=== PATIENT | female | born 1990 | race Caucasian/White ===

== ENCOUNTER 2019-11-15 21:21 | Inpatient (IN) | payer OTHER ==
[~2019-11-15] VITALS: Ht 167.6 cm; Wt 70.9 kg
[2019-11-15 21:49] VITALS: BP 111/72
[2019-11-15] MEDS ORDERED: OXYTOCIN 30 UNITS IN 0.9% NaCl 500ML IV BAG (J2590) As Ordered ONE (23:39)
[2019-11-15 23:55] VITALS: BP 123/75
--- NOTE | 2019-11-15 23:55 | HPEPDOC ---
Obstetrical History & Physical General Date of Admission History of Present Illness patient is a 29 yo @ 38wks gestation by lmp CHAYITO 22JUL presents with regular painful contractions. patient progressed to have a spontaneous delivery while being monitored. Chief Complaint: Contractions, term Information Provided By: Patient Age: 29 : 2 Term: 2 Pre-term: 0 Abortions: 0 Livin Care Care: Good Care Dating Final EDC: Nov 28, 2019 Final EDC for Daily Update: Nov 28, 2019 Final EDC by: LMP, 1st trimester (US) Past Medical History Past Obstetrical History : Past Obstetrical History: Multigravida ( x 2) Past Medical History Medical History tachycardia, depression, Social History Marital Status: Family situation: Spouse/partner home * Smoker: non-smoker Alcohol: Denies Drugs: denies Imunizations Tdap status: current Allergies Coded Allergies: No Known Allergies (Unverified , 11/15/19) Physical Examination Physical Examination GENERAL: Alert and oriented times three. BREAST: . ABDOMEN: , Uterus at u-2 HEART RATE: Regular rate and rhythm. LUNGS: Clear to auscultation (CTA). EXTREMITIES: No edema. No clonus. Deep tendon reflexes (DTRs) + . vaginal/perineum: no laceration Vital Signs/I&O Vital Signs Date Time Temp Pulse Resp B/P (MAP) Pulse Ox O2 Delivery O2 Flow Rate FiO2 11/15/19 21:49 98.4 93 16 111/72 (85) Pertinent Laboratoy Data Blood Type: O+ RBC Antibody Screen: Negative HIV: Negative Hepatitis B: Negative Rapid Plasma Reagin: Nonreactive Rubella: Immune Chlamydia/Gonorrhea: Negative Group B Streptococcus: Negative Anatomy Ultrasound Placenta Location: Anterior Normal Anatomy: Yes Placenta Previa: No Vaginal Examination Effacement: 80% Cervical Consistency: Soft Assessment Heart Rate (FHR): 145 Decelerations: None Tocometer Frequency: every 1-5 min. Assessment/Plan Assessment patient is a 29 yo s/p precipitous delivery @38+1 wks. admit for care. see delivery notes for details. Plan Admit and orient. Balloon Tester and consent. Diet: regular Group B Streptococcus (GBS) negative Labs and intravenous (IV) per unit protocol. routine care. ANAYELI AKERS DO Nov 15, 2019 23:34
[2019-11-16] VITALS (8 sets, daily range): BP systolic 101–119; BP diastolic 55–78
--- NOTE | 2019-11-16 00:05 | DNPDOC ---
[facility] Delivery Note Delivery Note DATE OF DELIVERY: 11/15/19 PREDELIVERY DIAGNOSIS: 38+1/7 weeks' gestation and labor. POST DELIVERY DIAGNOSIS: Delivered. PROCEDURE: Spontaneous vaginal delivery SCREW DRIVER OPERATOR: Dr. Anayeli Newton DO ANESTHESIA: none ESTIMATED BLOOD LOSS: 250 mL. FINDINGS: 6 pound 7 ounce male infant, Score 8/9, nuchal cord times x1, bandalero cord x 1. DELIVERY SUMMARY: Come to assess patient when she SROM. Baby delivered with following contraction. nuchal cord and bandalero cord noted tight. anterior and posterior shoulder delivered, body followed with ease, cord reduced. baby placed on maternal abdomen. Pitocin 10units given IM x 1. Cord allowed to stop pulsating. cord clamped x 2 and cut by mom. cord blood collected per routine. placenta delivered spontaneously, intact appearing. Fundus massaged firm. Inspection revealed no laceration. baby and mother bonding when I left the room. ANAYELI NEWTON DO Nov 16, 2019 00:05
[2019-11-16] MEDS ORDERED: IBUPROFEN 800 MG TAB PO PRN (00:15)
[2019-11-16] MEDS ORDERED: MEASLES,MUMPS,RUBELLA VACCINE INJ (MMR-II) (90707) SC SCH (00:15)
[2019-11-16] MEDS ORDERED: OXYTOCIN INJ 10 UNITS/ML VIAL (J2590) IM ONE (00:15)
[2019-11-16] MEDS ORDERED: RHOGAM 300 MCG (1500 IU) INJ (J2790) IM SCH (00:15)
[2019-11-16] MEDS ORDERED: ACETAMINOPHEN TAB 650MG DOSE (2X325MG) PO PRN (00:15)
[2019-11-16] MEDS ORDERED: DIBUCAINE 1% OINTMENT 30GM TOP PRN (00:15)
[2019-11-16 01:09] LABS: HEMATOCRIT 40.3 % (36.0-47.0); HEMOGLOBIN 13.7 g/dl (12.0-15.5); MEAN CORPUSCULAR HEMOGLOBIN 30.6 pg (27.0-33.0); MEAN CORPUSCULAR VOLUME 90.2 fl (80.0-96.0); PLATELET COUNT, AUTOMATED 253 10^3/uL (150-450); RED BLOOD COUNT 4.47 10^6/uL (4.00-5.40)
[2019-11-16] MEDS: PRENATAL VITAMINS CHEWABLE TABLET PO SCH (08:12)
[2019-11-16] MEDS ORDERED: BUSP10TA PO (08:57)
[2019-11-16] MEDS ORDERED: WELLTAB40 PO (08:57)
[2019-11-16] MEDS ORDERED: METO1TAB87 PO (08:57)
[2019-11-16] MEDS ORDERED: BUPR150T3 PO (09:21)
[2019-11-16] MEDS ORDERED: BUPR15TASR PO (09:50)
[2019-11-16] MEDS ORDERED: METO1TAB32 PO (09:50)
[2019-11-16] MEDS: busPIRone 10 MG TAB PO SCH ×2 (11:44→21:34)
[2019-11-16] MEDS: METOPROLOL SUCC *XL* 12.5MG PER 1/2 TAB (TopROL *XL*) PO SCH (11:44)
[2019-11-16] MEDS: buPROPion **SR TABLET** (ZYBAN) 150MG PO SCH ×2 (11:44→21:00)
[2019-11-17 06:00] VITALS: BP 99/51
--- NOTE | 2019-11-17 08:32 | OBDS ---
[facility] Obstetrical Discharge Sum. Obstetrical Discharge Summary Date: Nov 17, 2019 : 2 Term: 2 Livin VDRL: Non-Reactive Rh: Positive Rubella: Immune Labor Active labor Delivery Infant Sex: Male Weight: pounds (6lb7oz) A/P, Post Course List any complications Admission diagnosis: Active Labor, Term Discharge diagnosis: Active Labor, Term Condition at Discharge: Stable Discharge Instructions: Home Activity: Ad hugo with pelvic rest Diet: Regular Medications: As received during 36wk visit Follow-up: 6wks Other: None HOSPITAL COURSE: Patient was admitted for active labor . She had an uncomplicated precipitous . Her course was uncomplicated with normal lochia, pain and spontaneous voiding. She ambulated and ate without difficulty. Liliya Tavares MD Nov 16, 2019 15:26
--- NOTE | 2019-11-17 08:32 | IPNPDOC ---
Progress Note Date of Service: Nov 17, 2019 Day#: 1 Progress Note SUBJECT: Patient is a 29-year-old 2 now Para 2 status post uncomplicated spontaneous vaginal delivery without post vaginal laceration, doing well day # 1. She has been ambulating, voiding spontaneously without issue and tolerating regular diet. Breast feeding without issue. Reports lochia is less than a period. Patient is ambulating well. Reports some cramping with . Denies any pain. OBJECTIVE: VITAL SIGNS: Within normal limits, afebrile. GENERAL: No acute distress HEENT: MMM BREAST: Nontender, no erythema CARDIOVASCULAR EXAMINATION: RRR RESPIRATORY EXAMINATION: Bilaterally clear ABDOMINAL EXAMINATION: Soft, appropriate tenderness, nondistended, fundus -2 PERINEUM: Intact, minimal lochia EXTREMITIES: no edema, nontender ASSESSMENT: Patient is a 29-year-old 2 now Para 2 status post uncomplicated spontaneous vaginal delivery without post vaginal laceration, doing well day # 1. Vitals within normal limits, afebrile, hemodynamically stable with no evidence of infection. PLAN: 1. Discharge to home today. 2. Tylenol and Motrin for pain. 3. Encourage breast feeding and ambulation. VS, I&O, 24H, Fishbone Vital Signs/I&O Vital Signs Date Time Temp Pulse Resp B/P (MAP) Pulse Ox O2 Delivery O2 Flow Rate FiO2 11/16/19 11:44 94 106/55 11/16/19 05:36 98.2 16 96 Room Air I&O- Last 24 Hours up to 6 AM 11/16/19 05:59 Output Total 850 ml Balance -850 ml Laboratory Data 24H LABS Laboratory Tests 2 11/16/19 01:01: Nucleated Red Blood Cells % (auto) 0.0, Syphilis Serology NONREACTIVE, Hepatitis B Surface Antigen (Rapid) NEGATIVEL 11/16/19 11:20: Serology Scanned Report Hepatitis B Testing CBC/BMP Laboratory Tests 11/16/19 01:01 Liliya Tavares MD Nov 16, 2019 15:24
[2019-11-17] MEDS: PRENATAL VITAMINS CHEWABLE TABLET PO SCH (10:25)
[2019-11-17] MEDS: buPROPion **SR TABLET** (ZYBAN) 150MG PO SCH (10:25)
[2019-11-17] MEDS: busPIRone 10 MG TAB PO SCH (10:25)
[2019-11-17 10:29] VITALS: BP 101/59
[2019-11-17] MEDS: METOPROLOL SUCC *XL* 12.5MG PER 1/2 TAB (TopROL *XL*) PO SCH (10:29)
== END 2019-11-17 12:50 | disposition home or self-care (01) | DRG 807 ==
LOC: M LDO 21:21 → M LDI 23:47 → M OBS 11-16 02:20
PROVIDERS: ADMIT Obstetrics & Gynecology; ATTEND Obstetrics & Gynecology
PROC: 10E0XZZ Delivery of Products of Conception, External Approach (ICD-10-PCS; principal; 2019-11-15)
DX: O62.3 Precipitate labor (principal); Z37.0 Single live birth; Z3A.38 38 weeks gestation of pregnancy; O69.1XX0 Labor and delivery complicated by cord around neck, with compression, not applicable or unspecified

== ENCOUNTER 2020-07-07 11:15 | Inpatient (IN) | payer OTHER ==
[~2020-07-07] VITALS: Ht 167.6 cm; Wt 51.5 kg
[~2020-07-07 11:15] MED LIST: BUPR150T12 PO; BUPR15TASR PO; BUSP10TA PO; METO1TAB32 PO; METO1TAB87 PO; WELLTAB40 PO
[2020-07-07 13:15] LABS: HEMATOCRIT 41.5 % (36.0-47.0); HEMOGLOBIN 13.8 g/dl (12.0-15.5); MEAN CORPUSCULAR HEMOGLOBIN 29.4 pg (27.0-33.0); MEAN CORPUSCULAR HGB CONC 33.3 g/dl (32.0-36.5); MEAN CORPUSCULAR VOLUME 88.3 fl (80.0-96.0); PLATELET COUNT, AUTOMATED 325 10^3/uL (150-450); WHITE BLOOD COUNT 6.8 10^3/uL (4.0-10.0)
[2020-07-07 13:38] LABS: AMPHETAMINES LEVEL URINE NEGATIVE (NEGATIVE); BARBITURATES URINE NEGATIVE (NEGATIVE); BENZODIAZEPINES URINE NEGATIVE (NEGATIVE); CANNABINOIDS URINE NEGATIVE (NEGATIVE); COCAINE METABOLITE URINE NEGATIVE (NEGATIVE); METHADONE URINE NEGATIVE (NEGATIVE); OPIATES URINE NEGATIVE (NEGATIVE); PHENCYCLIDINE URINE NEGATIVE (NEGATIVE)
[2020-07-07 13:45] LABS: HCG, SERUM QUALITATIVE NEGATIVE (NEGATIVE)
[2020-07-07 13:56] LABS: ACETAMINOPHEN LEVEL < 2.0 UG/ML (10.0-30.0); ALBUMIN 3.9 GM/DL (3.2-5.2); ALT/SGPT 17 U/L (12-78); BILIRUBIN,DIRECT < 0.1 MG/DL (0.0-0.2); BILIRUBIN,TOTAL 0.3 MG/DL (0.2-1.0); BLOOD UREA NITROGEN 18 MG/DL (7-18); CALCIUM LEVEL 9.1 MG/DL (8.5-10.1); CARBON DIOXIDE LEVEL 26 MEQ/L (21-32); CHLORIDE LEVEL 109 MEQ/L (98-107); CREATININE FOR GFR 0.52 MG/DL (0.55-1.30); ETHYL ALCOHOL (ETHANOL) < 0.003 % (0.000-0.010); GLOMERULAR FILTRATION RATE > 60.0 (>60); GLUCOSE, FASTING 82 MG/DL (70-100); SALICYLATE LEVEL < 1.7 MG/DL (5.0-30.0); SODIUM LEVEL 139 MEQ/L (136-145); THYROID STIMULATING HORMONE < 0.005 uIU/ML (0.358-3.740); TOTAL PROTEIN 7.3 GM/DL (6.4-8.2)
--- NOTE | 2020-07-07 19:39 | ECGEPIP ---
[facility] - ED Test Date: 2020-07-07 Pat Name: KAREN DE LEON Department: Room: - Gender: Female Insurance Claims Examiner: : 1990 Requested By: ADA Kirkland Order Number: [id number] Reading MD: Chula Middleton Measurements Intervals [place] Rate: 93 P: 77 HI: 156 QRS: 86 QRSD: 76 T: 69 QT: 332 QTc: 412 Interpretive Statements Normal sinus rhythm Nonspecific T wave abnormality NO PRIOR ECG FOR COMPARISON Electronically Signed on 07-07-2020 19:39:19 EST by Chula Middleton
[2020-07-07] MEDS ORDERED: MULTTAB20 PO (20:33)
[2020-07-07] MEDS ORDERED: SERT25TA21 PO (20:34)
[2020-07-07] MEDS ORDERED: COMMENTS (20:57)
[2020-07-08] MEDS ORDERED: METOPROLOL SUCC *XL* 25MG TAB (TopROL *XL*) PO ONE (08:30)
[2020-07-08] MEDS ORDERED: SERT50TA29 PO (08:34)
[2020-07-08] MEDS ORDERED: PRENATAL VITAMINS CHEWABLE TABLET PO SCH (09:00)
[2020-07-08] MEDS ORDERED: SERTRALINE HCL 50 MG TAB PO ONE (09:20)
[2020-07-08] MEDS ORDERED: traZODone 50 MG TAB PO PRN (10:55)
[2020-07-08] MEDS ORDERED: ACETAMINOPHEN TAB 650MG DOSE (2X325MG) PO PRN (10:55)
[2020-07-08] MEDS ORDERED: MOM 30ML SUSPENSION UDC PO PRN (10:55)
[2020-07-08] MEDS ORDERED: MAALOX 30 ML SUSP *UDC PO PRN (10:55)
[2020-07-08 11:15] LABS: RSV AMPLIFICATION NEGATIVE (NEGATIVE)
[2020-07-08 13:50] VITALS: BP 108/65
[2020-07-08 16:48] VITALS: BP 115/69
[2020-07-09 06:34] VITALS: BP 106/54
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
[2020-07-09] MEDS: SERTRALINE 100 MG TAB PO SCH (08:26)
[2020-07-09] MEDS ORDERED: INFLUENZA QUADRIVALENT PF VACCINE 0.5ML SYRINGE IM ONE (09:00)
[2020-07-09] MEDS ORDERED: METOPROLOL SUCC *XL* 25MG TAB (TopROL *XL*) PO SCH (09:00)
[2020-07-09] MEDS ORDERED: SERTRALINE 100 MG TAB PO SCH (09:00)
[2020-07-09] MEDS: PRENATAL VITAMINS CHEWABLE TABLET PO SCH (11:19)
[2020-07-09 11:21] VITALS: BP 104/64
[2020-07-09] MEDS ORDERED: METOPROLOL SUCC *XL* 12.5MG PER 1/2 TAB (TopROL *XL*) PO SCH (11:22)
[2020-07-09] MEDS ORDERED: METOPROLOL SUCC *XL* 12.5MG PER 1/2 TAB (TopROL *XL*) PO ONE (11:35)
[2020-07-09] MEDS: METOPROLOL SUCC *XL* 12.5MG PER 1/2 TAB (TopROL *XL*) PO SCH (11:57)
--- NOTE | 2020-07-09 13:50 | HPEPDOC ---
[facility] Medical History & Physical Date of Admission Jul 08, 2020 Date of Service: Jul 09, 2020 History and Physical CHIEF COMPLAINT: panic attacks HISTORY OF PRESENT ILLNESS: 29 yo female, who stated she's having bad panic attacks and yesterday had thoughts of jumping out the window. She has been off her depression medications, and states, "my mental health is not good". She states she does well on meds, and has been treated for anxiety and depression. 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 Her medical history is p ositive for idiopathic hypersomnia and tachycardia. Her past psychiatric hospitalizations of record in [place] in 2018. She was treated with Lexapro for depression. She denies any medical complaints. Denies chest pain, shortness of breath, headaches, N/V/D. PAST MEDICAL HISTORY: #tachycardia #anxiety/depression #atypical eating disorder ALLERGIES: Please see below. REVIEW OF SYSTEMS: Negative except as per HPI. HOME MEDICATIONS: Please see below. PHYSICAL EXAMINATION: VITAL SIGNS: See below LABORATORY DATA: See below. MICROBIOLOGY: Please see below. A/P: 29 year old female admitted to [facility] for panic attacks and suicidal ideat ion. #SI/panic attacks - as per primary team - psychiatry #tachycardia - continue with beta vale therapy Thank you for this consultation. Please re-consult as needed. Vital Signs Vital Signs Date Time Temp Pulse Resp B/P (MAP) Pulse Ox O2 Delivery O2 Flow Rate FiO2 07/09/20 11:57 96 104/64 07/09/20 06:34 98.3 16 97 Room Air Home Medications Scheduled Metoprolol Succinate (Metoprolol Succinate) 25 Mg Tab.er.24h, 12.5 MG PO DAILY No122/Iron/Folic Acid ( Multi Tablet) 1 Each Tablet, 1 TAB PO DAILY Sertraline HCl (Sertraline HCl) 50 Mg Tablet, 50 MG PO DAILY Allergies Coded Allergies: No Known Allergies (Unverified , 11/15/19) A-FIB/CHADSVASC A-FIB History Current/History of A-Fib/PAF?: No RAZIA REYNAGA MD Jul 09, 2020 13:50
--- NOTE | 2020-07-09 16:02 | MHIPNPDOC ---
[facility] Progress Note Progress Note DATE OF SERVICE: 07/09/20 HISTORY: Patient ran out of medication. Became anxious and depressed for the last week and a half. Recently brought up to us her eating difficulties, anxiety towards a food unless her gets it for her and following her emesis during . Patient's and patient seemed in a layton to get her back home. I have increased her Zoloft and did they want her home and she wants to go home. I will not supervisor drawing her way, but did tell the patient that we can't really explore her eating issues if they aren't such a layton to go VITAL SIGNS: See below. NEW TEST RESULTS: None. CURRENT MEDICATIONS: See below. MENTAL STATUS EXAMINATION: Patient is a 29-year old female, who is presenting depressed and anxious. Speech: Is no gross disturbance. Language skills are no gross disturbance. Thought processes including: Anxiety. Thought content: Anxiety and depression. Abstract reasoning, and computation: Can abstract. Description of associations:. No loose association. Description of abnormal or psychotic thoughts: No psychotic thought. Judgment: Fair. Insight: Fair. Orientation: 3. Recent and remote memory: Intact. Attention span and concentration: Intact. Language: No gross disturbance. Fund of knowledge: Full. Mood: Anxious. Affect:, Euthymic , congruent. DIAGNOSES: 1., Major depression. 2., atypical eating disorder. 3..Anxiety ASSESSMENT: Patient will profit from more intensive psychotherapy and treatment, but and she are pressuring to be discharged MANAGEMENT PLAN:, Will plan discharge as per her request and . TIME SPENT: 35 minutes. Vital Signs Vital Signs Date Time Temp Pulse Resp B/P (MAP) Pulse Ox O2 Delivery O2 Flow Rate FiO2 07/09/20 11:57 96 104/64 07/09/20 06:34 98.3 16 97 Room Air Current Medications Current Medications Medications (Trade) Dose Ordered Sig/Matilda Route PRN Reason Start Time Stop Time Status Last Admin Dose Admin Acetaminophen (Tylenol Tab) 650 mg Q6HP PRN PO HEADACHE or DISCOMFORT 07/08/20 10:55 Al Hydrox/Mg Hydrox/Simethicone (Mylanta) 30 ml Q4HP PRN PO HEARTBURN/INDIGESTION 07/08/20 10:55 Home Med (Med Rec Complete!) ASDIRECTED XX 07/07/20 21:00 07/07/20 20:59 DC Magnesium Hydroxide (Milk Of Magnesia) 30 ml DAILYPRN PRN PO CONSTIPATION 07/08/20 10:55 Metoprolol Succinate (TopROL XL) 12.5 mg DAILY PO 07/09/20 09:00 07/09/20 11:22 DC Metoprolol Succinate (TopROL XL) 12.5 mg DAILY PO 07/09/20 09:00 07/09/20 11:57 Metoprolol Succinate (TopROL XL) 12.5 mg DAILY PO 07/09/20 11:22 07/09/20 11:47 DC Prenat Multivit/ High Density Press Operator/Iron/Folic Ac ( Vitamins) 1 tab DAILY PO 07/08/20 09:00 07/08/20 11:11 DC 07/08/20 09:47 Prenat Multivit/ [place]/Iron/Folic Ac ( Vitamins) 1 tab DAILY PO 07/09/20 09:00 07/09/20 11:19 Sertraline HCl (Zoloft) 100 mg DAILY PO 07/09/20 09:00 07/08/20 11:11 DC Sertraline HCl (Zoloft) 100 mg DAILY PO 07/09/20 09:00 07/09/20 08:26 Trazodone HCl (Desyrel) 50 mg QHSP PRN PO INSOMNIA 07/08/20 10:55 Allergies Coded Allergies: No Known Allergies (Unverified , 11/15/19) SAFIA NEAL MD Jul 09, 2020 16:02
[2020-07-09 16:29] VITALS: BP 108/55
[2020-07-10 06:37] VITALS: BP 109/58
[2020-07-10 09:03] VITALS: BP 109/58
[2020-07-10] MEDS: PRENATAL VITAMINS CHEWABLE TABLET PO SCH (09:03)
[2020-07-10] MEDS: SERTRALINE 100 MG TAB PO SCH (09:03)
[2020-07-10] MEDS: METOPROLOL SUCC *XL* 12.5MG PER 1/2 TAB (TopROL *XL*) PO SCH (09:03)
[2020-07-10] MEDS ORDERED: ZOLO100T PO (09:26)
--- NOTE | 2020-07-10 18:25 | MHDSPDOC ---
[facility] Discharge Summary Discharge Summary DATE OF ADMISSION: Jul 08, 2020 at 10:55 DATE OF DISCHARGE: Jul 10, 2020 at 13:21 DISCHARGE DIAGNOSES: 1., Generalized anxiety. 2., Atypical eating disorder. REASON FOR ADMISSION: Ran out of medication, became depressed and severely anxious CONSULTANTS INVOLVED:, None TREATMENT AND PROGRESS ON THE UNIT :. She was placed on her Zoloft and it was increased from 50-100 mg. HOSPITAL COURSE: Patient felt significantly better but described an eating difficulty that she had had since she was . and her wanted her to be discharged so that was not explored DISCHARGE ASSESSMENT: Generalized anxiety, atypical eating disorder MENTAL STATUS EXAMINATION ON DISCHARGE: Patient is a. 29-year old female, who is . Speech is normal. Language skills are. No gross disturbance. Thought processes including:. No gross disturbance. Thought content:. No gross disturbance. Abstract reasoning, and computation: Able to abstract, somewhat. Description of associations: No loose association. Description of abnormal or psychotic thoughts:. No psychotic thought. Judgment: Fair. Insight: Some. Orientation to 3. Recent and remote memory: Intact. Attention span and concentration: Intact. Language: No disturbance. Fund of knowledge: Reasonable. Mood: Improved. Affect:, Brighter. MEDICATIONS ON DISCHARGE: -, Zoloft 100 mg for depression PLAN/FOLLOWUP ARRANGEMENTS: [facility] Jonathon Govea and PCP. The amount of time spent in the coordination of care for this patient was approximately 35 minutes. ETOH/Disorder Med Rx ETOH/DRUG DISORDER RX: Offrd @ d/c & pt refused Vital Signs/I&Os Vital Signs Date Time Temp Pulse Resp B/P (MAP) Pulse Ox O2 Delivery O2 Flow Rate FiO2 07/10/20 09:03 78 109/58 07/10/20 06:37 99.7 18 98 Room Air Medications Scheduled Metoprolol Succinate (Metoprolol Succinate) 25 Mg Tab.er.24h, 12.5 MG PO DAILY, (Reported) No122/Iron/Folic Acid ( Multi Tablet) 1 Each Tablet, 1 TAB PO DAILY, (Reported) Sertraline Hcl (Zoloft) 100 Mg Tablet, 100 MG PO DAILY for Depression, #10 Allergies Coded Allergies: No Known Allergies (Unverified , 11/15/19) SAFIA NEAL MD Jul 10, 2020 18:25
== END 2020-07-10 13:21 | disposition home or self-care (01) | DRG 880 ==
LOC: M ED 11:15 → M ED INP 07-08 10:55 → M PSY 07-08 12:47
PROVIDERS: ADMIT Psychiatry & Neurology Child & Adolescent Psychiatry; ATTEND Psychiatry & Neurology Child & Adolescent Psychiatry
DX: F41.1 Generalized anxiety disorder (principal); R45.851 Suicidal ideations; F50.9 Eating disorder, unspecified; Z79.899 Other long term (current) drug therapy; Z91.14 Patient's other noncompliance with medication regimen; R00.0 Tachycardia, unspecified

== ENCOUNTER → 2022-11-23 | Day surgery (SDC) | payer OTHER ==
[~2022-11-23] VITALS: Ht 167.6 cm; Wt 66.1 kg
[~2022-11-23] MED LIST changes: +ACETAMINOPHEN *IV* 1,000 MG IV ONE; +COMMENTS; +HYDROMORPHONE HCL 0.5 MG/ 0.5 ML SYRINGE IV PRN; +KETOROLAC 30 MG/ML 1ML VIAL As Ordered ONE; +LIDOCAINE 2% 100MG/5ML SDV (FOR ANES.) As Ordered ONE; +LR 1,000 ML IV SCH; +MIDAZOLAM INJ 2MG/2ML VIAL As Ordered ONE; +MULTTAB20 PO; +ONDANSETRON 4MG 2ML VIAL As Ordered ONE; +ONDANSETRON 4MG 2ML VIAL IV PRN; +PHENYLephrine 500MCG 5ML (100MCG/ML) SYRINGE As Ordered ONE; +ROCURONIUM BROMIDE 50MG/5ML VIAL As Ordered ONE; +SERT25TA21 PO; +SERT50TA29 PO; +SUGAMMADEX SODIUM 500 MG/5 ML VIAL (BRIDION) As Ordered ONE; +ZOLO100T PO; +ceFAZolin SOD 2 GM in IV 1 EA IV ONE; +fentaNYL 100 MCG/2 ML INJECTION As Ordered ONE; +fentaNYL 100 MCG/2 ML INJECTION IV PRN; +oxyCODONE 5MG TAB PO PRN; +propofoL 200 MG/20 ML VIAL As Ordered ONE
[2022-11-23 06:55] LABS: HEMATOCRIT 41.1 % (36.0-47.0); HEMOGLOBIN 13.3 g/dl (12.0-15.5); MEAN CORPUSCULAR HEMOGLOBIN 28.7 pg (27.0-33.0); MEAN CORPUSCULAR HGB CONC 32.4 g/dl (32.0-36.5); MEAN CORPUSCULAR VOLUME 88.6 fl (80.0-96.0); PLATELET COUNT, AUTOMATED 387 10^3/uL (150-450); RED BLOOD COUNT 4.64 10^6/uL (4.00-5.40); WHITE BLOOD COUNT 11.8 10^3/uL (4.0-10.0)
[2022-11-23 12:55] VITALS: BP 111/70; TEMP 96.8; O2SAT 98
== END | disposition home or self-care (01) ==
LOC: M SDC 06:13
PROVIDERS: ATTEND Obstetrics & Gynecology
DX: N93.9 Abnormal uterine and vaginal bleeding, unspecified (principal); N83.201 Unspecified ovarian cyst, right side; Z30.2 Encounter for sterilization; F41.9 Anxiety disorder, unspecified; F32.A Depression, unspecified; Z79.899 Other long term (current) drug therapy
CPT/HCPCS: 36415; 58571; 81025; 85027; 86850; 86900; 86901; 88307; A6024; J0665; J0690; J1100; J2250; J2371; J2405; J3010